=== PATIENT | female | born 1975 | race Caucasian/White ===

== ENCOUNTER 2017-02-24 06:03 | Emergency (ER) | payer SELFPAY ==
[~2017-02-24] VITALS: Ht 160 cm; Wt 76.2 kg
[~2017-02-24 06:03] MED LIST: ALBU8.5H3 INH; FLUT1DIS IH; MONT10TA6 PO
[2017-02-24] MEDS ORDERED: PHENAZOPYRIDINE 200 MG TABLET ONE (06:48)
[2017-02-24] MEDS ORDERED: KETOROLAC 30 MG/1 ML ONE (06:48)
[2017-02-24] MEDS ORDERED: PHENAZOPYRIDINE 200 MG TABLET PO ONE (07:00)
[2017-02-24] MEDS ORDERED: KETOROLAC 30 MG/1 ML IM ONE (07:00)
[2017-02-24 07:12] LABS: BLOOD UREA NITROGEN 11 mg/dL (7-18)
[2017-02-24 07:36] LABS: ANISOCYTOSIS 2+; HYPOCHROMIA 2+; MICROCYTOSIS 2+
[2017-02-24 07:37] LABS: OVALOCYTES 1+; POIKILOCYTOSIS 1+
[2017-02-24 07:38] LABS: LARGE PLATELETS 1+; POLYCHROMASIA 1+
[2017-02-24] MEDS ORDERED: CEFTRIAXONE 1,000 MG ONE (07:59)
[2017-02-24] MEDS ORDERED: CEFTRIAXONE 1,000 MG IM ONE (08:00)
[2017-02-24 08:10] VITALS: BP 123/75
== END 2017-02-24 08:18 | disposition home or self-care (01) ==
LOC: ED 07:11
DX: N30.01 Acute cystitis with hematuria (principal); D64.9 Anemia, unspecified; R30.0 Dysuria
CPT/HCPCS: 36415; 80048; 81001; 82040; 84703; 85025; 87086; 96372; 99284; J0696; J1885

== ENCOUNTER 2018-03-18 21:31 | Emergency (ER) | payer SELFPAY ==
[~2018-03-18] VITALS: Ht 160 cm; Wt 79.9 kg
[~2018-03-18 21:31] MED LIST changes: -ALBU8.5H3 INH; +ALBU8.5H8 INH
[2018-03-18 21:34] VITALS: BP 137/87
[2018-03-18] MEDS ORDERED: VIT D (21:41)
[2018-03-18 22:10] LABS: BASOPHILS # (AUTO) 0.08 x10^3/uL (0-0.1); BASOPHILS % (AUTO) 1 % (0-1); EOSINOPHILS # (AUTO) 0.12 x10^3/uL (0-0.4); EOSINOPHILS % (AUTO) 2 % (1-7); LYMPHOCYTES # (AUTO) 1.96 x10^3/uL (1-3.4); LYMPHOCYTES % (AUTO) 25 % (22-44); MD NO; MEAN CORPUSCULAR HEMOGLOBIN 21.5 pg (27.0-34.8); MEAN CORPUSCULAR HGB CONC 31.7 g/dL (32.4-35.8); MEAN CORPUSCULAR VOLUME 67.8 fL (80-100); MEAN PLATELET VOLUME 8.5 fL (7.4-10.4); MONOCYTES # (AUTO) 0.47 x10^3/uL (0.2-0.8); MONOCYTES % (AUTO) 6 % (2-9); NEUTROPHILS % (AUTO) 67 % (42-75); PLATELET COUNT 392 x10^3/uL (130-400); RED BLOOD COUNT 5.46 x10^6/uL (3.82-5.3); RED CELL DISTRIBUTION WIDTH 18.8 % (9.6-15.2)
[2018-03-18 22:17] LABS: ALANINE AMINOTRANSFERASE 27 U/L (12-78); ALBUMIN 3.7 g/dL (3.4-5.0); ANION GAP 5 mmol/L (5-15); CALCIUM 8.9 mg/dL (8.5-10.1); CHLORIDE 106 mmol/L (98-107)
[2018-03-18 22:23] LABS: ALKALINE PHOSPHATASE 84 U/L (45-117); BILIRUBIN,TOTAL 0.2 mg/dL (0.2-1.0); CREATININE 0.68 mg/dL (0.55-1.02); TOTAL PROTEIN 8.2 g/dL (6.4-8.2)
[2018-03-18] MEDS ORDERED: MAALOX/HYOSCYAMINE/LIDOCAINE 45 ML BTL ONE (23:12)
[2018-03-18] MEDS ORDERED: MAALOX/HYOSCYAMINE/LIDOCAINE 45 ML BTL PO ONE (23:30)
[2018-03-19] LABS: MICROSCOPIC AUTO
[2018-03-19 00:06] LABS: CULTURE INDICATED? YES
[2018-03-19] MEDS ORDERED: HYDROcodone/APAP 10/325 MG TABLET PO ONE (00:30)
[2018-03-19] MEDS ORDERED: HYDROcodone/APAP 10/325 MG TABLET ONE (01:04)
== END 2018-03-19 01:12 | disposition home or self-care (01) ==
LOC: ED 23:59
DX: R10.13 Epigastric pain (principal); K21.9 Gastro-esophageal reflux disease without esophagitis
CPT/HCPCS: 36415; 76700; 80053; 81001; 83690; 84703; 85025; 87086; 93005; 99285

== ENCOUNTER 2020-03-30 12:18 | Inpatient (IN) | payer MEDICAID, OTHER ==
[~2020-03-30] VITALS: Ht 160 cm; Wt 80.1 kg
[~2020-03-30 12:18] MED LIST changes: +VIT D
[2020-03-30] MEDS ORDERED: SODIUM CHLORIDE FLUSH 10ML SYR IVF ONE (13:00)
[2020-03-30 13:26] LABS: BASOPHILS # (AUTO) 0.01 x10^3/uL (0-0.1); BASOPHILS % (AUTO) 0 % (0-1); EOSINOPHILS % (AUTO) 0 % (1-7); LYMPHOCYTES % (AUTO) 13 % (22-44); MD NO; MEAN CORPUSCULAR HEMOGLOBIN 29.4 pg (27.0-34.8); MEAN CORPUSCULAR HGB CONC 33.5 g/dL (32.4-35.8); MEAN CORPUSCULAR VOLUME 87.8 fL (80-100); MEAN PLATELET VOLUME 7.6 fL (7.4-10.4); MONOCYTES # (AUTO) 0.32 x10^3/uL (0.2-0.8); MONOCYTES % (AUTO) 6 % (2-9); NEUTROPHILS # (AUTO) 4.35 x10^3/uL (1.8-6.8); NEUTROPHILS % (AUTO) 81 % (42-75); PLATELET COUNT 273 x10^3/uL (130-400); RED BLOOD COUNT 4.92 x10^6/uL (3.82-5.3); RED CELL DISTRIBUTION WIDTH 12.6 % (9.6-15.2)
--- NOTE | 2020-03-30 13:29 | NUR ---
Pt resting in bed, call light in reach. VSS.
[2020-03-30 13:36] LABS: ALANINE AMINOTRANSFERASE 35 U/L (12-78); ALBUMIN 3.2 g/dL (3.4-5.0); ANION GAP 6 mmol/L (5-15); CALCIUM 8.8 mg/dL (8.5-10.1); CHLORIDE 102 mmol/L (98-107); CREATININE 0.63 mg/dL (0.55-1.02)
[2020-03-30 13:38] LABS: ALKALINE PHOSPHATASE 61 U/L (45-117); BILIRUBIN,TOTAL 0.4 mg/dL (0.2-1.0)
--- NOTE | 2020-03-30 14:02 | NUR ---
PT RESTING IN BED, CALL LIGTH IN REACH.
--- NOTE | 2020-03-30 14:53 | NUR ---
THROUGHPUT RN: PT GOT TESTED LAST THURSDAY AT [facility]. CALLED [facility] X 3 TIMES AND SPOKE W/ CALL SERVICE MD WHO STATES SHE DOES NOT HAVE INFORMATION ABOUT PT COVID RESULTS. ATTEMPTED TO CALL X 5 TIMES [facility] WITHOUT SUCCESS IN REACHING SOMEONE FOR COVID RESULTS. CALLED [facility] WITHOUT SUCCESS IN REACHING SOMEONE. CALLED [facility] MAIN OFFICE WITHOUT SUCCESS IN REACHING SOMEONE FOR COVID RESULTS. SPOKE W/ PT DAUGHTER WHO STATES SHE HAS NO RESULTS FOR COVID-19. ERP DR. CROWDER NOTIFIED OF MULTIPLE ATTEMPTS.
--- NOTE | 2020-03-30 15:05 | NUR ---
BREAK RN: PT WITH SATS DECREASED TO 87% WITH AMB, INCREASED WORK OF BREATHING AND COUGHING. MD TO BE NOTIFIED. SATS INCREASE WITH REST.
--- NOTE | 2020-03-30 15:16 | NUR ---
DISCUSSED WITH DR CROWDER, IF BLOOD CULTURES NEED PRIOR TO ABX ADMINISTRATION. BC TO BE ORDERED. DR CROWDER TO SWAB PT FOR COVID-19. PT UPDATED ON POC.
[2020-03-30] MEDS ORDERED: DEXAMETHASONE 4 MG TABLET ONE (15:18)
[2020-03-30] MEDS ORDERED: DOXYCYCLINE 100MG TABLET ONE ×2 (15:21→21:26)
[2020-03-30] MEDS ORDERED: DEXAMETHASONE 4 MG TABLET PO ONE (15:30)
[2020-03-30] MEDS ORDERED: DOXYCYCLINE 100MG TABLET PO ONE (15:30)
--- NOTE | 2020-03-30 15:34 | NUR ---
REPORT TO NIRAV SHELTON.
[2020-03-30 16:19] LABS: D-DIMER (DIC) 0.49 ug/mlFEU (0.00-0.52)
[2020-03-30] MEDS ORDERED: PROMETHAZINE 25 MG/ML, 1ML IM PRN (16:30)
[2020-03-30] MEDS ORDERED: LABETALOL 5MG/ML, 20ML IVPush PRN (16:30)
[2020-03-30] MEDS: CEFTRIAXONE PMX 1GM/50ML 50 ML IV SCH (16:30)
[2020-03-30] MEDS: GUAIFENESIN 200 MG TABLET PO SCH ×2 (16:30→21:31)
[2020-03-30] MEDS: ALBUTEROL/IPRATROPIUM 2.5MG/0.5MG, 3 ML HHN SCH ×2 (16:30→21:31)
[2020-03-30] MEDS ORDERED: ONDANSETRON 2MG/ML, 2ML IVPush PRN (16:30)
[2020-03-30] MEDS ORDERED: hydrALAzine 20 MG/ML, 1ML IVPush PRN (16:30)
--- NOTE | 2020-03-30 16:36 | NUR ---
[facility] AT BEDSIDE FOR EVAL.
[2020-03-30] MEDS ORDERED: CEFTRIAXONE PMX 1GM/50ML 50 ML ONE (16:46)
[2020-03-30] MEDS ORDERED: ALBUTEROL/IPRATROPIUM 2.5MG/0.5MG, 3 ML ONE ×2 (16:46→21:23)
[2020-03-30] MEDS ORDERED: HEPARIN 5,000 UNITS/ML, 1ML ONE ×2 (16:46→23:31)
[2020-03-30] MEDS: SODIUM CHLORIDE 0.9% 1,000 ML IV SCH (16:51)
[2020-03-30] MEDS: HEPARIN 5,000 UNITS/ML, 1ML SQ SCH ×2 (16:52→23:44)
[2020-03-30 16:57] LABS: BASOPHILS % (AUTO) 0 % (0-1); EOSINOPHILS % (AUTO) 0 % (1-7); LYMPHOCYTES # (AUTO) 0.87 x10^3/uL (1-3.4); LYMPHOCYTES % (AUTO) 13 % (22-44); MD NO; MEAN CORPUSCULAR HEMOGLOBIN 29.3 pg (27.0-34.8); MEAN CORPUSCULAR HGB CONC 33.8 g/dL (32.4-35.8); MEAN CORPUSCULAR VOLUME 86.8 fL (80-100); MEAN PLATELET VOLUME 7.4 fL (7.4-10.4); MONOCYTES # (AUTO) 0.28 x10^3/uL (0.2-0.8); MONOCYTES % (AUTO) 4 % (2-9); NEUTROPHILS # (AUTO) 5.67 x10^3/uL (1.8-6.8); NEUTROPHILS % (AUTO) 83 % (42-75); PLATELET COUNT 276 x10^3/uL (130-400); RED BLOOD COUNT 5.19 x10^6/uL (3.82-5.3); RED CELL DISTRIBUTION WIDTH 12.8 % (9.6-15.2)
--- NOTE | 2020-03-30 18:48 | NUR ---
REPORT TO PRISCA SHELTON
--- NOTE | 2020-03-30 19:21 | NUR ---
PT RESTING COMFORTABLY IN BED, WARM BLANKETS PROVIDED, NAD NOTED
[2020-03-30] MEDS ORDERED: GUAIFENESIN 200 MG TABLET ONE (21:26)
[2020-03-30] MEDS: DOXYCYCLINE 100MG TABLET PO SCH (21:31)
--- NOTE | 2020-03-30 21:33 | NUR ---
PT RECIEVED BREATHING TX PER NOV, PT DENIES PAIN OR ANY ISSUES AT THIS TIME, RESTING COMFORTABLY IN BED, CALL AVILA AND BELONGINGS WITHIN REACH
--- NOTE | 2020-03-30 23:22 | NUR ---
THROUGHPUT RN: HOSPITAL BED ORDERED.
[2020-03-30] MEDS: ALBUTEROL SULFATE 200 PUFFS/8.5 GR INH INH SCH (23:44)
--- NOTE | 2020-03-31 01:03 | NUR ---
PT SLEEPING IN HOSPITAL BED, BREATHING UNLABORED, VSS, NAD NOTED
--- NOTE | 2020-03-31 03:12 | NUR ---
PT RESTING IN BED WATCHING TV, PT STATES SHE IS DOING WELL AND HAS NO REQUESTS OR COMPLAINTS AT THIS TIME
[2020-03-31 05:04] LABS: ALANINE AMINOTRANSFERASE 38 U/L (12-78); ALBUMIN 2.8 g/dL (3.4-5.0); ANION GAP 9 mmol/L (5-15); CALCIUM 8.4 mg/dL (8.5-10.1); CHLORIDE 107 mmol/L (98-107); CREATININE 0.39 mg/dL (0.55-1.02)
[2020-03-31 05:07] LABS: ALKALINE PHOSPHATASE 61 U/L (45-117); BILIRUBIN,TOTAL 0.4 mg/dL (0.2-1.0)
--- NOTE | 2020-03-31 05:11 | NUR ---
PT AMBULATED TO RESTROOM WITHOUT ASSISTANCE, NAD NOTED, VSS. PROVIDED PT WITH SPRITE AND ICE PER REQUEST
[2020-03-31] MEDS: SODIUM CHLORIDE 0.9% 1,000 ML IV SCH ×2 (05:22→18:47)
[2020-03-31] MEDS ORDERED: GUAIFENESIN 200 MG TABLET ONE (05:25)
--- NOTE | 2020-03-31 05:49 | NUR ---
REPORT CALLED TO LEONARD SHELTON TO ASSUME CARE UPON TRANSFER
[2020-03-31] MEDS: ALBUTEROL SULFATE 200 PUFFS/8.5 GR INH INH SCH ×4 (05:52→21:09)
[2020-03-31] MEDS: GUAIFENESIN 200 MG TABLET PO SCH ×4 (05:52→21:10)
[2020-03-31 06:19] VITALS: BP 121/86
[2020-03-31 07:58] VITALS: BP 109/74
[2020-03-31] MEDS ORDERED: TEMPLATE NON-FORMULARY MED. (Fluticasone/Salmeterol** (Advair 100-50 Diskus**) 1 PUFF) HOMEINH SCH (09:00)
[2020-03-31] MEDS: DOXYCYCLINE 100MG TABLET PO SCH ×2 (10:27→21:10)
[2020-03-31] MEDS: ASCORBIC ACID 500 MG TABLET PO SCH ×3 (10:28→21:10)
[2020-03-31] MEDS: ZINC SULFATE 220 MG CAPSULE PO SCH (10:30)
[2020-03-31] MEDS: HEPARIN 5,000 UNITS/ML, 1ML SQ SCH ×2 (10:30→18:47)
[2020-03-31] MEDS: MONTELUKAST 10 MG TABLET PO SCH (10:30)
[2020-03-31] MEDS: CHOLECALCIFEROL 1,000 UNIT TABLET PO SCH (10:30)
[2020-03-31 13:23] VITALS: BP 133/83
[2020-03-31] MEDS ORDERED: ASCORBIC ACID 250 MG TAB ONE (16:49)
[2020-03-31] MEDS: CEFTRIAXONE PMX 1GM/50ML 50 ML IV SCH (17:06)
[2020-03-31 19:27] VITALS: BP 115/74
[2020-03-31] MEDS: MELATONIN 5 MG TABLET PO SCH (21:10)
[2020-04-01 02:33] VITALS: BP 104/67
[2020-04-01] MEDS: HEPARIN 5,000 UNITS/ML, 1ML SQ SCH ×3 (02:57→17:24)
[2020-04-01] MEDS: GUAIFENESIN 200 MG TABLET PO SCH ×4 (05:45→20:16)
[2020-04-01] MEDS: ACETAMINOPHEN 325 MG TABLET PO PRN ×2 (05:45→20:16)
[2020-04-01] MEDS: ALBUTEROL SULFATE 200 PUFFS/8.5 GR INH INH SCH ×4 (05:46→20:16)
[2020-04-01 07:36] VITALS: BP 98/64
[2020-04-01] MEDS: ASCORBIC ACID 500 MG TABLET PO SCH ×3 (08:43→20:16)
[2020-04-01] MEDS: CHOLECALCIFEROL 1,000 UNIT TABLET PO SCH (08:43)
[2020-04-01] MEDS: DOXYCYCLINE 100MG TABLET PO SCH ×2 (08:43→20:16)
[2020-04-01] MEDS: MONTELUKAST 10 MG TABLET PO SCH (08:43)
[2020-04-01] MEDS: ZINC SULFATE 220 MG CAPSULE PO SCH (08:43)
[2020-04-01] MEDS: SODIUM CHLORIDE 0.9% 1,000 ML IV SCH ×2 (08:45→20:18)
[2020-04-01] MEDS: CEFTRIAXONE PMX 1GM/50ML 50 ML IV SCH (15:15)
[2020-04-01 15:49] VITALS: BP 104/72
[2020-04-01] MEDS ORDERED: CEFTRIAXONE PMX 2GM/50ML 50 ML IV SCH (16:30)
[2020-04-01] MEDS ORDERED: CEFTRIAXONE PMX 1GM/50ML 50 ML IV ONE (17:00)
[2020-04-01 19:15] VITALS: BP 108/67
[2020-04-01] MEDS: MELATONIN 5 MG TABLET PO SCH (20:16)
[2020-04-02] MEDS: HEPARIN 5,000 UNITS/ML, 1ML SQ SCH ×3 (02:34→17:51)
[2020-04-02 02:35] VITALS: BP 107/72
[2020-04-02] MEDS: ACETAMINOPHEN 325 MG TABLET PO PRN (02:44)
[2020-04-02] MEDS: GUAIFENESIN 200 MG TABLET PO SCH ×4 (05:55→22:27)
[2020-04-02] MEDS: ALBUTEROL SULFATE 200 PUFFS/8.5 GR INH INH SCH ×4 (05:55→22:26)
[2020-04-02 07:05] LABS: C-REACTIVE PROTEIN, QUANT 5.2 mg/dL (0.02-0.49)
[2020-04-02 08:29] VITALS: BP 112/76
[2020-04-02] MEDS: CHOLECALCIFEROL 1,000 UNIT TABLET PO SCH (08:58)
[2020-04-02] MEDS: ZINC SULFATE 220 MG CAPSULE PO SCH (08:58)
[2020-04-02] MEDS: DOXYCYCLINE 100MG TABLET PO SCH ×2 (08:58→22:27)
[2020-04-02] MEDS: ASCORBIC ACID 500 MG TABLET PO SCH ×3 (08:58→22:27)
[2020-04-02] MEDS: MONTELUKAST 10 MG TABLET PO SCH (08:58)
[2020-04-02] MEDS: SODIUM CHLORIDE 0.9% 1,000 ML IV SCH ×2 (08:59→22:36)
[2020-04-02 12:05] VITALS: BP 117/47
[2020-04-02] MEDS ORDERED: CEFTRIAXONE PMX 2GM/50ML 50 ML IV SCH ×2 (16:00→16:30)
[2020-04-02 21:55] VITALS: BP 119/77
[2020-04-02] MEDS: MELATONIN 5 MG TABLET PO SCH (22:27)
[2020-04-03] MEDS: HEPARIN 5,000 UNITS/ML, 1ML SQ SCH ×2 (02:56→10:38)
[2020-04-03 02:59] VITALS: BP 107/71
[2020-04-03] MEDS: ALBUTEROL SULFATE 200 PUFFS/8.5 GR INH INH SCH ×2 (06:10→10:38)
[2020-04-03] MEDS: GUAIFENESIN 200 MG TABLET PO SCH ×2 (06:11→10:38)
[2020-04-03] MEDS: MONTELUKAST 10 MG TABLET PO SCH (08:12)
[2020-04-03] MEDS: ASCORBIC ACID 500 MG TABLET PO SCH (08:12)
[2020-04-03] MEDS: CHOLECALCIFEROL 1,000 UNIT TABLET PO SCH (08:12)
[2020-04-03] MEDS: ZINC SULFATE 220 MG CAPSULE PO SCH (08:12)
[2020-04-03] MEDS: DOXYCYCLINE 100MG TABLET PO SCH (08:12)
[2020-04-03 08:14] VITALS: BP 116/81
[2020-04-03] MEDS ORDERED: MELA5TAB14 PO (11:31)
[2020-04-03] MEDS ORDERED: DOXY100T PO (11:31)
[2020-04-03] MEDS ORDERED: ZINC220C7 PO (11:31)
[2020-04-03] MEDS ORDERED: METH4TAB PO (11:31)
[2020-04-03] MEDS ORDERED: CEFD300C37 PO (11:31)
[2020-04-03] MEDS ORDERED: ASCO500T9 PO (11:31)
== END 2020-04-03 13:55 | disposition home or self-care (01) | DRG 177 ==
LOC: ED 15:13 → EDIP 18:01 → 4NW 03-31 06:02
PROVIDERS: ADMIT Internal Medicine; ATTEND Internal Medicine
DX: U07.1 COVID-19 (principal); J12.89 Other viral pneumonia; J96.21 Acute and chronic respiratory failure with hypoxia; E87.1 Hypo-osmolality and hyponatremia; J45.21 Mild intermittent asthma with (acute) exacerbation; E66.9 Obesity, unspecified; Z90.710 Acquired absence of both cervix and uterus; Z68.31 Body mass index [BMI] 31.0-31.9, adult
CPT/HCPCS: 36415; 71045; 80053; 82728; 83605; 83615; 84145; 85025; 85049; 85379; 85384; 85610; 85730; 86140; 87040; 87070; 87205; 87635; 99285; G0378; J0696; J1644; J7030